=== PATIENT | male | born 1995 | race Caucasian/White ===

== ENCOUNTER 2016-02-26 15:54 | Emergency (ER) | payer OTHER ==
[~2016-02-26] VITALS: Ht 167.6 cm; Wt 63.6 kg
[2016-02-26 15:56] VITALS: BP 124/89; TEMP 97.5
[2016-02-26] MEDS ORDERED: NORCO 325 MG-51 TAB PO ×2 (16:00→17:06)
[2016-02-26 16:27] LABS: BASO # 0.1 (0.0-0.2); BASO % 0.8 % (0.0-2.0); EOS # 0.2 (0.0-0.7); GRAN # 3.6 (1.4-6.5); HEMATOCRIT 45.5 % (42.0-52.0); HEMOGLOBIN 16.1 g/dl (13.5-18.0); LYMPH % 31.9 % (20.0-51.0); MEAN CELL VOLUME 87 fl (80.0-100.0); MEAN CORPUSCULAR HEMOGLOBIN 31 pg (27.0-31.0); MEAN CORPUSCULAR HGB CONC 35 g/dl (33.0-37.0); MEAN PLATELET VOLUME 10.3 fl (7.4-10.4); MONO # 0.4 (0.1-0.6); MONO % 5.8 % (1.7-9.3); PLATELET COUNT 188 K/mm3 (130-400); RED BLOOD COUNT 5.23 M/mm3 (4.20-5.60); REDCELL DISTRIBUTION WIDTH-CV 11.8 % (11.5-14.5); WHITE BLOOD COUNT 6.2 K/mm3 (4.8-10.8)
[2016-02-26 16:39] LABS: ADJUSTED CALCIUM 9.6 mg/dL (8.4-10.2); ALANINE AMINOTRANSFERASE 47 U/L (21-72); ALBUMIN 4.8 gm/dL (3.5-5.0); ALKALINE PHOSPHATASE 65 U/L (50-136); ANION GAP 11 mmol/L (7-16); BILIRUBIN,TOTAL 1.6 mg/dL (0.0-1.0); BLOOD UREA NITROGEN 16 mg/dL (9-20); CALCIUM 10.2 mg/dL (8.4-10.2); CARBON DIOXIDE 27 mmol/L (22-30); CHLORIDE 101 mmol/L (98-107); CREATININE, serum 0.84 mg/dL (0.66-1.25); GLUCOSE 91 mg/dL (74-106); LIPASE 97 U/L (23-300); POTASSIUM 4.2 mmol/L (3.4-5.0); SODIUM 139 mmol/L (137-145); TOTAL PROTEIN 8.4 gm/dL (6.4-8.2)
[2016-02-26 16:40] LABS: C-REACTIVE PROTEIN < 0.5 mg/dL (0.0-0.9)
[2016-02-26] MEDS ORDERED: MOTRIN 800800 MG/TAB PO (17:06)
[2016-02-26 17:07] VITALS: PULSE 70
== END 2016-02-26 17:15 | disposition home or self-care (01) ==
LOC: COL.ER 15:54
PROVIDERS: Emergency Medicine
DX: K63.89 Other specified diseases of intestine (principal)
CPT/HCPCS: J1885

== ENCOUNTER 2019-01-11 06:11 | Emergency (ER) | payer OTHER ==
[~2019-01-11] VITALS: Ht 167.6 cm; Wt 65.9 kg
[~2019-01-11 06:11] MED LIST: MOTRIN 800800 MG/TAB PO; NORCO 325 MG-51 TAB PO
[2019-01-11 06:16] VITALS: BP 143/87
[2019-01-11] MEDS ORDERED: AMOXICILLIN/CLA1 TA1 PO (06:45)
[2019-01-11] MEDS ORDERED: NORCO 325 MG-51 TAB PO (06:45)
[2019-01-11 07:00] VITALS: PULSE 97; TEMP 98.3
== END 2019-01-11 07:00 | disposition home or self-care (01) ==
LOC: COL.ER 06:11
DX: S01.451A Open bite of right cheek and temporomandibular area, initial encounter (principal); W50.3XXA Accidental bite by another person, initial encounter